=== PATIENT | female | born 1990 | race Caucasian/White ===

== ENCOUNTER → 2017-12-17 | Outpatient (CLI) | payer OTHER ==
[2016-10-12 13:30] VITALS: BMI 28.6
[~2017-12-17] MED LIST: BAC PO; DOCU-416 PO; FERR-53 PO; HYDR-317 PO; IBUP-1618 PO; IBUP800T37 PO; NOR5/325 PO; PREN-127 PO
[2017-12-17 14:13] LABS: PLATELET COUNT, AUTOMATED 306 K/uL (150-450)
== END ==
LOC: LAB 08:44
PROVIDERS: ATTEND Obstetrics & Gynecology
DX: Z34.91 Encounter for supervision of normal pregnancy, unspecified, first trimester (principal)
CPT/HCPCS: 36415; 81001; 85025; 86592; 86703; 86762; 86850; 86900; 86901; 87088; 87340

== ENCOUNTER → 2017-12-21 | Outpatient (CLI) | payer OTHER ==
[2016-10-12 13:30] VITALS: BMI 28.6
== END ==
LOC: LAB 15:00
PROVIDERS: ATTEND Student in an Organized Health Care Education/Training Program
DX: Z11.8 Encounter for screening for other infectious and parasitic diseases (principal); Z11.3 Encounter for screening for infections with a predominantly sexual mode of transmission
CPT/HCPCS: 87491; 87591

== ENCOUNTER → 2018-01-31 | Outpatient (CLI) | payer OTHER ==
[2016-10-12 13:30] VITALS: BMI 28.6
--- NOTE | 2018-02-01 01:24 | RADIOLOGY IMAGING REPORT ---
[place] [facility] [place] NAME: Crystal Mattson : 1990 MR: [id number] V: [id number] EXAM DATE: ORDERING PHYSICIAN: DESI KELLER TECHNOLOGIST: Location: [facility] - [place] Patient: Crystal Mattson : 1990 Visit/Account:[id number] Date of Sevice: 01/31/2018 EXAMINATION: Transabdominal OB Ultrasound > 14 weeks with anatomic evaluation HISTORY: Anatomic survey Gestational age: 21 weeks 3 days, based on an YOANNA of 06/10/2018. LMP(c): 09/03/2017. COMPARISON: None. FINDINGS: Intrauterine gestations: one presentation: Breech heart rate: 144 bpm Amniotic fluid index: 17.3 cm Largest amniotic fluid pocket 4.7 cm Placenta: Posterior in position. Placenta is low-lying. Inferior margin of the placenta is located 1. 5 cm from the cervical os. Normal cord insertion along the central placenta. Uterus: gravid, otherwise normal Maternal adnexa: Grossly negative. Maternal ovaries are not visualized. Cervix: Closed and long. Cervical length measures 4.0 cm by transabdominal imaging. Gestational Parameters: BPD: 4.79 cm, 20 weeks 4 days HC: 18.88 cm, 21 weeks 2 days AC: 16.11 cm, 21 weeks 2 days FL: 3.60 cm, 21 weeks 3 days Average ultrasound age (AUA): 21 weeks 1 day Estimated weight (EFW): 410 grams +/- 60 grams EFW for LMP: 35th percentile Anatomic Survey: Intracranial structures, 4-chamber heart, stomach, kidneys, urinary bladder, spine, 3-vessel cord and cord insertion are unremarkable. Two upper and two lower extremities visualized. Cardiac ventricula r outflow tracts, palate and lips are unremarkable in appearance. IMPRESSION: 1. Single live intrauterine gestation in breech presentation. 2. Average ultrasound age 21 weeks and 1day. 3. Unremarkable anatomic survey. 4. Low-lying posterior placenta. Inferior margin is located 1.5 cm from the cervical os. Report Dictated By: Milo Sutton MD at 02/01/2018 1:08 AM Report E-Signed By: Milo Sutton MD at 02/01/2018 1:20 AM WSN:[id number]
== END ==
LOC: RAD 09:27
PROVIDERS: ATTEND Student in an Organized Health Care Education/Training Program
DX: Z34.92 Encounter for supervision of normal pregnancy, unspecified, second trimester (principal); Z3A.21 21 weeks gestation of pregnancy

== ENCOUNTER → 2018-04-04 | Outpatient (CLI) | payer OTHER ==
[2016-10-12 13:30] VITALS: BMI 28.6
[~2018-04-04] MED LIST changes: +DIPH0.5D12 IM; +RHO(150015 IM
== END ==
LOC: LAB 09:36
PROVIDERS: ATTEND Student in an Organized Health Care Education/Training Program
DX: Z34.93 Encounter for supervision of normal pregnancy, unspecified, third trimester (principal)
CPT/HCPCS: 36415; 82950; 85027

== ENCOUNTER → 2018-05-11 | Outpatient (CLI) | payer OTHER ==
[2016-10-12 13:30] VITALS: BMI 28.6
== END ==
LOC: LAB 08:12
PROVIDERS: ATTEND Student in an Organized Health Care Education/Training Program
DX: Z34.93 Encounter for supervision of normal pregnancy, unspecified, third trimester (principal)
CPT/HCPCS: 87081

== ENCOUNTER 2018-06-22 08:24 | Inpatient (IN) | payer OTHER ==
[~2018-06-22] VITALS: Ht 170.2 cm; Wt 77.6 kg
[2018-06-22 09:00] VITALS: BP 112/65; Ht 170.2 cm; Wt 77.6 kg
[2018-06-22] MEDS ORDERED: FLUSH 10 ML SYR IVP PRN (09:15)
[2018-06-22] MEDS ORDERED: METOCLOPRAMIDE 10 MG/2 ML SDV IVP PRN (09:15)
[2018-06-22] MEDS ORDERED: LIDOCAINE 1% LOCAL 300 MG/30ML INJ PRN (09:15)
[2018-06-22] MEDS ORDERED: OXYTOCIN 30 UNIT/D5LR 500 ML 500 ML IV PRN (09:15)
[2018-06-22] MEDS ORDERED: fentaNYL CITR 100 MCG/2 ML AMP IVP PRN (09:15)
[2018-06-22] MEDS ORDERED: FAMOTIDINE(*) 20MG/50ML PREMIX 50 ML IVPB PRN (09:15)
[2018-06-22] MEDS ORDERED: LIDOCAINE/SOD BICARB 8.4% SYR SC PRN (09:15)
[2018-06-22] MEDS ORDERED: LR(*) 1000 ML BAG 1,000 ML IV SCH (09:15)
[2018-06-22 09:41] LABS: PLATELET COUNT, AUTOMATED 256 K/uL (150-450)
--- NOTE | 2018-06-22 11:04 | History & Physical ---
History of Present Illness Age of Patient: 27 : 3 Para or TPAL: 2 Estimated Gestational Age: 41.5 Chief Complaint Pt has been having irregular contractions since 06/20 10:30pm. She denies LOF, or VB with good FM. She was seen in clinic yesterday for cervix check and membrane sweep and was found to be 4/70/-2/mod/pos. She also had an NST that was reactive and reassuring. Discussed options to help progress labor. Pt was very reluctant and hesitant to do anything but the membrane sweep at that time. She has a "vision" of how she would like things to go, but understand the risk as we progress further into . She denies PENN, vision changes, and RUQ pain. History Patient's Blood Type: O Negative Rubella Status: Non-Immune Group B Strep Screen: Positive (Pt declines TX in labor: pt has been given the risks and still declines) Allergies: Coded Allergies: latex (Verified Allergy, Mild, 03/12/15) Rash gluten (Verified Adverse Reaction, Mild, pain, 06/22/18) Uncoded Allergies: walnuts (Allergy, Mild, 04/15/09) WATERMELON (Allergy, Unknown, 03/12/15) Social History: Denies use of smoking, ETOH, and illicit drugs including marijuana Family History: FH: BRCA gene positive maternal aunts 4 maternal Uncle maternal grandmother Med Rec Home Meds Reported Medications Vits W-Ca,Fe,Fa(<1MG) ( VITAMINS) 1 Each Tablet, 1 EACH PO DAILY 03/12/15 Review of Systems Neurological: No Dizziness Eyes: No Vision Change Cardiovascular: No Chest Pain Respiratory: No Shortness of Breath Gastrointestinal: No Nausea, No Vomiting, No Diarrhea Musculoskeletal: No Pain (mild abominal pain related to contractions) Psychiatric: No Depression, No Anxiety Exam General Exam Vital Signs Vital Signs Date Time Temp Pulse Resp B/P (MAP) Pulse Ox O2 Delivery O2 Flow Rate FiO2 06/22/18 09:00 98.4 65 18 112/65 (81) 95 Room Air General Apperance: Alert/Awake/No Acute Distress Neuro: No Gross deficits Eyes: Normal Extraocular Movement & Vison ENT: Normal Cardiovascular: Regular Rate and Rhythm Respiratory: No Respiratory Distress Abdomen: Gravid - Non-Tender, RUQ Non-Tender : Normal Integumentary: Skin Intact without Lesions or Rash Psychological: Alert & Oriented X3, Appropriate Mood & Affect Uterine Contraction Strength: Moderate UC Resting Tone: Soft Fetus Feeling Movement?: Yes Estimated Weight(grams): 3200 Heart Tones: 120 Heart Tone Variabilty: Moderate FHT Accelerations: 15X15 FHT Decelerations: None FHT Category: I Medical Decision Making Data Points Result Diagram: 06/22/18 0930 VTE Prophylasis: Adult Deep Vein Thrombosis/Pulmonary: No Pharmacological Contraindicati: Pt at Low Risk for VTE Mechanical Contraindications: Pt at Low Risk for VTE Assessment and Plan Problems: (1) Uterine contractions Onset Date: ~ 06/20/2018 Status: Acute Assessment & Plan: HM is a 27 y.o. at 41w5d wks with an Estimated Date of Delivery: 06/10/18 dated by LMP and US Labor state: Early labor, but irregular contraction pattern since 06/20 at 2230. Reviewed with pt and possible AROM, Cytotec, or Pitocin to aide in progressing labor. Discussed R/B/A. I did advise that because she is post dates I would not want her to go home, although it is ultimately her choice. I also suggested a cervical check and membrane sweep and then walking for 2 hours to see if she has any cervical change. I left pt and to discuss. well-being: Category I FHT: Intermittent monitoring for low risk Maternal well-being: VSS, normotensive and afebrile, membranes presumed intact PNL: GBS post (pt declines PCN tx after informed consent given), Type/Rh O neg, rubella nonimmune Pain Management: Plans for an unmedicated Feed: Breast c/b: * Postdates * rubella non-immune * Rh neg but is also Rh neg Anticipate appropriate labor progression, re-evaluate in 2 hours or prn ALEXIA JUNIOR CNM Jun 22, 2018 11:04
--- NOTE | 2018-06-22 14:22 | Labor Progress Note ---
Labor Subjective Progress Notes Subjective Pt has been feeling more intense contractions, but they have not increased in frequency. She denies LOF. She has some light vaginal spotting and good movement. She is agreeable to AROM to progress labor. is at the bedside and is very supportive. Feeling Movement?: Yes Vaginal Discharge/Fluid: Bloody Show, Clear Fluid, Small Amount Labor Pain: Moderate Neurological: No Headache Eyes: No Visual Disturbances Labor Objective Vital Signs Vital Signs Date Time Temp Pulse Resp B/P (MAP) Pulse Ox O2 Delivery O2 Flow Rate FiO2 06/22/18 09:00 98.4 65 18 112/65 (81) 95 Room Air Vaginal Discharge/Fluid?: Bloody Show, Clear Fluid, Moderate Amount Cervical Dialation: 7 Cervical Effacement (%): 70 Cervical Consistency: Moderate Cervical Position: Posterior Station: -1 Presentation: Vertex Uterine Contractions(Q min): 7 Uterine Contraction Strength: Moderate UC Resting Tone: Soft Fetus Estimated Weight(grams): 3200 Heart Tones: 125 Heart Tone Variabilty: Moderate FHT Accelerations: 15X15 FHT Decelerations: None FHT Category: I General Exam General Appearance: Alert/Awake/No Acute Distress ENT: Normal : Normal Psychological: Alert & Oriented X3, Appropriate Mood & Affect Other Result Diagram: 06/22/18 0930 Assessment and Plan Problems: (1) Uterine contractions Onset Date: ~ 06/20/2018 Status: Acute Assessment & Plan: HM is a 27 y.o. at 41w5d wks with an Estimated Date of Delivery: 06/10/18 dated by LMP and US Labor state: Active labor, but cervix is still very posterior and no change in effacement. AROM for clear moderate amount of fluid and continued leaking. Contractions have become more intense since then. Recommend upright positions to encourage descent and continued cervical change. Expect progression to complete in the next 2-3 hours, if not change then pt agreeable to low dose Pitocin. well-being: Category I FHT: Intermittent monitoring for low risk Maternal well-being: VSS, normotensive and afebrile, membranes presumed intact PNL: GBS post (pt declines PCN tx after informed consent given), Type/Rh O neg, rubella nonimmune Pain Management: Plans for an unmedicated , coping well. She would like to try hydrotherapy next if not able to tolerate pain. Feed: Breast c/b: * Postdates * rubella non-immune * GBS post and declines treatment in labor * Rh neg but is also Rh neg Anticipate appropriate labor progression to NSVB, re-evaluate in 2-3 hours or prn ALEXIA JUNIOR CNM Jun 22, 2018 14:22
--- NOTE | 2018-06-22 20:13 | Labor Progress Note ---
Labor Subjective Progress Notes Subjective Pt is feeling more pain and is not able to talk much through the contractions. She feels kind of pushy and a lot of pressure, but not enough to push. She denies, PENN, vision changes, and RUQ pain. Intermittent nausea. +FM Feeling Movement?: Yes Vaginal Discharge/Fluid: Bloody Show, Clear Fluid Labor Pain: Moderate Neurological: No Headache Eyes: No Visual Disturbances Labor Objective Vital Signs Vital Signs Date Time Temp Pulse Resp B/P (MAP) Pulse Ox O2 Delivery O2 Flow Rate FiO2 06/22/18 09:00 98.4 65 18 112/65 (81) 95 Room Air Vaginal Discharge/Fluid?: Clear Fluid Cervical Dialation: 8 Cervical Effacement (%): 80 Cervical Consistency: Moderate Cervical Position: Mid Station: 0 Presentation: Vertex Uterine Contractions(Q min): 5 Uterine Contraction Strength: Moderate UC Resting Tone: Soft Fetus Estimated Weight(grams): 3200 Heart Tones: 130 Heart Tone Variabilty: Moderate FHT Accelerations: 15X15 FHT Decelerations: None FHT Category: I General Exam General Appearance: Alert/Awake/No Acute Distress, Afebrile ENT: Normal Neck: No Masses : Normal Psychological: Alert & Oriented X3, Appropriate Mood & Affect Other Result Diagram: 06/22/18 0930 Assessment and Plan Problems: (1) Uterine contractions Onset Date: ~ 06/20/2018 Status: Acute Assessment & Plan: HM is a 27 y.o. at 41w5d wks with an Estimated Date of Delivery: 06/10/18 dated by LMP and US Labor state: Active labor, approaching transition. Minimal cervical change although, pt is exhibiting physical signs of labor progression and closer to transition. Encouraging upright position. well-being: Category I FHT: Intermittent monitoring for low risk Maternal well-being: VSS, normotensive and afebrile, membranes presumed intact PNL: GBS post (pt declines PCN tx after informed consent given), Type/Rh O neg, rubella nonimmune Pain Management: Coping well with TENS and controlled breathing. She would like to try hydrotherapy next if not able to tolerate pain. Feed: Breast c/b: * Postdates * rubella non-immune * GBS post and declines treatment in labor * Rh neg but is also Rh neg Anticipate NSVB, reevaluate in 2-3 hours ALEXIA JUNIOR CNM Jun 22, 2018 20:13
--- NOTE | 2018-06-22 23:30 | Labor Progress Note ---
Labor Subjective Progress Notes Subjective Pt reports much more intense contractions. Feeling a lot of pelvic pressure. She is starting to get fatigued so she would like to get in the bath for some relief and some relaxation. She is starting to feel shaky, but not an uncontrollable urge to push yet. at bedside and very supportive. Feeling Movement?: Yes Vaginal Discharge/Fluid: Clear Fluid Labor Pain: Moderate Neurological: No Headache Eyes: No Visual Disturbances Labor Objective Vital Signs Vital Signs Date Time Temp Pulse Resp B/P (MAP) Pulse Ox O2 Delivery O2 Flow Rate FiO2 06/22/18 09:00 98.4 65 18 112/65 (81) 95 Room Air Vaginal Discharge/Fluid?: Bloody Show Cervical Dialation: 9 Cervical Effacement (%): 90 Cervical Consistency: Soft Cervical Position: Mid Station: 0 Presentation: Vertex Uterine Contractions(Q min): 4 Uterine Contraction Strength: Moderate UC Resting Tone: Soft Fetus Estimated Weight(grams): 3200 Heart Tones: 145 Heart Tone Variabilty: Moderate FHT Accelerations: 15X15 FHT Decelerations: None FHT Category: I General Exam General Appearance: Alert/Awake/No Acute Distress ENT: Normal Cardiovascular: Normal Rhythm & Peripheral Pulses Respiratory: No Respiratory Distress Abdomen: Gravid - Non-Tender, RUQ Non-Tender : Normal Musculoskeletal: No Weakness/Pain Integumentary: Skin Intact without Lesions or Rash Psychological: Alert & Oriented X3, Appropriate Mood & Affect Other Result Diagram: 06/22/18 0930 Assessment and Plan 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 at 41w5d wks with an Estimated Date of Delivery: 06/10/18 dated by LMP and US Labor state: Approaching transition. Minimal cervical change although, pt is exhibiting physical signs of labor progression and closer to transition. Starting to fatigue, but declines pitocin and wants to continue to labor naturally. well-being: Category I FHT: Intermittent monitoring for low risk Maternal well-being: VSS, normotensive and afebrile, AROM x almost 10 hours, Monitor closely for s/s chorioamnionitis PNL: GBS post (pt declines PCN tx after informed consent given), Type/Rh O neg, rubella nonimmune Pain Management: Coping well with TENS and controlled breathing and now in tub with aromatherapy doing well Feed: Breast c/b: * Postdates * rubella non-immune * GBS post and declines treatment in labor * Rh neg but is also Rh neg Anticipate NSVB, provider continuously at bedside ALEXIA JUNIOR CNM Jun 22, 2018 23:30
[2018-06-23] MEDS ORDERED: MAGNESIUM HYDROXIDE* 30ML UDCP PO PRN (02:25)
[2018-06-23] MEDS ORDERED: APAP/HYDROCODONE 325/5 TAB PO PRN (02:25)
[2018-06-23] MEDS ORDERED: HYDROCORTISONE 2.5% CR 30GM TB PR PRN (02:25)
[2018-06-23] MEDS ORDERED: MEASLES,MUMP,RUBELLA VAC 0.5ML SC ONE (02:25)
[2018-06-23] MEDS ORDERED: IBUPROFEN 800 MG TAB PO SCH (02:25)
[2018-06-23] MEDS ORDERED: LANOLIN OINT 7 GM TUBE TP PRN (02:25)
[2018-06-23] MEDS ORDERED: GLYCERIN/WITCH HAZEL LEAF 1 PK TOP PRN (02:25)
[2018-06-23] MEDS ORDERED: BENZOCAINE 20% 60 ML BTL TP PRN (02:25)
--- NOTE | 2018-06-23 02:28 | OB Delivery Note ---
Delivery Note Vaginal Delivery Type: Spont. Vaginal Delivery Delivery Date: Jun 23, 2018 Delivery Time: 01:02 Estimated Gestational Age(wks): 41.6 Infant Sex: Female [place] Apgars: 1 Minute (5), 5 Minute (8) Repair Needed: Laceration, Perineal (midline using a 3-0 vicryl), 2nd Degree Estimated Blood Loss: 500 Delivery Complications: Nuchal Cord (reduced) Notes: Pt was admitted to the family care unit at 0830 on 06/23/18. Cervical exam on admission was 6/70/-2. She had AROM on 06/22/18 at 1345 for clear moderate fluid. Pt was GBS positive and declined PCN treatment in labor after informed consent was given. Patient understands that baby will need to stay 48 hours for observation. FHR were CAT I primarily throughout first stage. Pt utilized non- pharmacological methods such as hydrotherapy, aromatherapy, controlled breathing and a TENS unit for pain management. Pt was completely dilated on 06/23/09 at 0050 and pt began spontaneously pushing at that time. At 0102 pt had a NSVB of live female infant APGARS 5/8, weighing 8lbs 1oz. The head delivered spontaneously in the OA position and restituted KINJAL with one nuchal cord that was reduced at the perineum. The anterior shoulder was delivered a traumatically and the posterior shoulder followed. Body delivered easily. Face was wiped and then placed on the maternal abdomen. The was dried and stimulated and noted to have poor tone and color with a spontaneous weak cry. Baby was continuously stimulated with a more vigorous cry, but then taken to the warmer for nursing assessment after cord was clamped X 2 by CNM after 3 minutes and cut by patient's spouse. Baby's tone and color improved and was taken back to the mother. Mother was in slightly upright position on the birthing stool. At 0108 the placenta and membranes delivered spontaneous and intact with a 3 vessel cord after gentle downward traction and maternal push. 20 units of Pitocin was given IM as the patient's IV came out during delivery, to firm the uterus and started immediately after placenta delivery. Upon inspection of the perineum a second degree midline perineal laceration was noted and repaired using a 3.0 Vicryl under 1% lidocaine. Patient tolerated the procedure well. perineal swelling was noted and ice was applied soon after. Hemostasis observed. EBL 500 with fundus firm with minimal bleeding. Mom and baby were left in stable condition. initiated shortly after with good success. "I personally examined the patient and there are no unintended foreign objects in the vagina and all sponge, lap and needle counts were correct." Shannan Khanna CNM was present throughout the entire delivery SHANNAN Michelle CNM Jun 23, 2018 02:28
[2018-06-23 03:16] VITALS: BP 122/60
[2018-06-23] MEDS: IBUPROFEN 800 MG TAB PO SCH ×3 (04:00→20:00)
[2018-06-23] MEDS ORDERED: LIDOCAINE 1% LOCAL 300 MG/30ML 30 ML ONE (04:49)
[2018-06-23] MEDS ORDERED: OXYTOCIN 10 UNIT/ML SDV ONE ×2 (04:49→04:52)
[2018-06-23 05:12] VITALS: BP 115/62
[2018-06-23 08:20] VITALS: BP 107/78
[2018-06-23] MEDS: DOCUSATE CALCIUM 240 MG CAP PO SCH ×2 (09:00→21:00)
--- NOTE | 2018-06-23 09:25 | OB/GYN Progress Note ---
OB Subjective Progress Notes Subjective Patient is day #0 after an uncomplicated NSVB of a female infant at 0102 on 06/23/18. She reports feeling well thia morning, just very tired. She did get 3 hours of sleep, but plans to sleep more today. Her mother is coming to help with baby so they can both sleep. She denies PENN, vision changes, and RUW p ain. She is having mild cramping and perineal pain, but she is tolerating this with motrin. is going very well. GI: POS Flatus; NEG Nausea, NEG Vomiting : Voiding Well, Vaginal Bleeding, Moderate Pain: Moderate, Tolerating PO Pain Meds Neurological: No Headache Eyes: No Visual Disturbances OB Objective Physical Exam Vital Signs Date Time Temp Pulse Resp B/P (MAP) Pulse Ox O2 Delivery O2 Flow Rate FiO2 06/23/18 05:12 98.1 100 18 115/62 (79) 06/22/18 09:00 95 Room Air Intake and Output 06/23/18 07:00 Intake Total 240 ml Balance 240 ml Intake Oral 240 ml General Appearance: Alert/Awake/No Acute Distress Neurological: No Gross deficits Eyes: Normal Extraocular Movement & Vison ENT: Normal Neck: No Masses Cardiovascular: Normal Rhythm & Peripheral Pulses Respiratory: No Respiratory Distress : Normal Musculoskeletal: No Weakness/Pain Integumentary: Skin Intact without Lesions or Rash Psychological: Alert & Oriented X3, Appropriate Mood & Affect Result Diagram: 06/22/18 0930 Assessment and Plan 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 Encourage motrin use and dermaplast spray. (4) care following vaginal delivery Onset Date: ~ 06/23/2018 Status: Acute Assessment & Plan: Pt is PP day # 0 after a uncomplicated of a female infant this am at 0102. She is doing well, other than being extremely tired. Plan for her to rest today and increase hydration. Baby will need to stay for 48 hours, but if all is going well she can be discharged tomorrow and room in. ALEXIA JUNIOR CNM Jun 23, 2018 09:25
[2018-06-23 13:30] VITALS: BP 113/62
[2018-06-23 18:30] VITALS: BP 121/76
[2018-06-23 20:20] VITALS: BP 114/72
[2018-06-24 00:30] VITALS: BP 111/56
[2018-06-24 03:33] VITALS: BP 105/73
[2018-06-24] MEDS: IBUPROFEN 800 MG TAB PO SCH ×2 (04:00→12:00)
[2018-06-24 07:50] VITALS: BP 114/69
[2018-06-24] MEDS: DOCUSATE CALCIUM 240 MG CAP PO SCH (09:00)
--- NOTE | 2018-06-24 09:17 | OB/GYN Discharge Summary ---
Discharge Summary Reason for Hosp/Final Diag: (1) Uterine contractions Onset Date: ~ 06/20/2018 Status: Resolved (2) (normal spontaneous vaginal delivery) Status: Resolved (3) Second degree perineal laceration during delivery Status: Acute Hospital Course & Plan: Erica bottle when urinating and patting dry. Encourage motrin use and dermaplast spray. (4) care following vaginal delivery Onset Date: ~ 06/23/2018 Status: Acute Hospital Course & Plan: Pt is PP day # 1 after a uncomplicated of a female on 06/23/18@ 0102. She is doing well without concerns. is going well with a good latch. Her bottom is sore but she is tolerating the discomfort with ibuprofen and witch henri spray. Patient denies headache, vision changes, right upper quadrant pain, anxiety, depression and bilateral calf tend erness. She will be discharged today and rooming in with her baby who will be discharged tomorrow. Reviewed discharge instructions and patient verbalizes understanding. Lates Vital Signs Vital Signs Date Time Temp Pulse Resp B/P (MAP) Pulse Ox O2 Delivery O2 Flow Rate FiO2 06/24/18 03:33 98.2 90 16 105/73 (84) 97 Room Air Weight (Pounds): 171 Result Diagram: 06/24/18 0556 Condition: Improved Discharge: Home Home Meds Reported Medications Vits W-Ca,Fe,Fa(<1MG) ( VITAMINS) 1 Each Tablet, 1 EACH PO DAILY 03/12/15 Follow up Referrals: FILM LABORATORY TECHNICIAN @ [facility] with ALEXIA JUNIOR CNM, ELIZABETH M CNM Jun 24, 2018 09:17
[2018-06-24] MEDS ORDERED: MEASLES,MUMP,RUBELLA VAC 0.5ML SUBQ ONE (14:15)
== END 2018-06-24 14:55 | disposition home or self-care (01) | DRG 806 ==
LOC: OB 08:24
PROVIDERS: ADMIT Student in an Organized Health Care Education/Training Program; ATTEND Student in an Organized Health Care Education/Training Program
PROC: 10E0XZZ Delivery of Products of Conception, External Approach (ICD-10-PCS; principal; 2018-06-22)
PROC: 0KQM0ZZ Repair Perineum Muscle, Open Approach (ICD-10-PCS; 2018-06-22)
PROC: 10907ZC Drainage of Amniotic Fluid, Therapeutic from Products of Conception, Via Natural or Artificial Opening (ICD-10-PCS; 2018-06-22)
DX: O48.0 Post-term pregnancy (principal); O36.0130 Maternal care for anti-D [Rh] antibodies, third trimester, not applicable or unspecified; Z37.0 Single live birth; O99.824 Streptococcus B carrier state complicating childbirth; O69.81X0 Labor and delivery complicated by cord around neck, without compression, not applicable or unspecified; O70.1 Second degree perineal laceration during delivery; Z23 Encounter for immunization; Z3A.41 41 weeks gestation of pregnancy
CPT/HCPCS: 36415; 85025; 85027; 86850; 86900; 86901; 90707; J2001; J2590